=== PATIENT | female | born 1985 | race Caucasian/White ===

== ENCOUNTER 2022-08-03 18:26 | Emergency (ER) | payer OTHER ==
[~2022-08-03] VITALS: Ht 149.9 cm; Wt 74.8 kg
[~2022-08-03 18:26] MED LIST: DITROPAN XL5 MG PO; LEVOFLOXACIN500 MG PO; LEXAPRO; TYLENOL WITH C1 EACH PO; Z.0.LISINOPRIL5 MG; [UNRECOGNIZED DRUG - OTHER]
[2022-08-03] MEDS ORDERED: ALBUTEROL/IPRATROPIUM 3 ML NEB NEB ONE (20:00)
[2022-08-03] MEDS ORDERED: MEDROL4 M2 PO (20:18)
[2022-08-03] MEDS ORDERED: PROVENTIL HFA6.7 GM INH (20:18)
[2022-08-03 20:54] VITALS: BP 112/80
== END 2022-08-03 20:52 | disposition home or self-care (01) ==
LOC: ER 18:30
DX: R06.02 Shortness of breath (principal); J45.909 Unspecified asthma, uncomplicated; G91.9 Hydrocephalus, unspecified; Z98.2 Presence of cerebrospinal fluid drainage device; F17.210 Nicotine dependence, cigarettes, uncomplicated
CPT/HCPCS: 94799; 99282